=== PATIENT | male | born 1950 | race Caucasian/White ===

== ENCOUNTER → 2017-06-18 | Day surgery (SDC) | payer BC ==
[~2017-06-18] MED LIST: Midazolam 1 MG/ML 2 ML SDV ONE; Propofol 200 MG/20 ML SDV ONE; Sodium Chloride 0.9% 1,000 ML IV SCH; fentaNYL 100 MCG/2 ML SDV ONE
--- NOTE | 2017-06-18 14:57 | OR ---
DATE OF PROCEDURE: 06/18/2017 PROCEDURE: Colonoscopy. FINDINGS: 1. Transverse colon polyp, approximately 5 mm, completely removed using cold biopsy forceps. 2. Diverticulosis, mild, mostly concentrated at sigmoid colon. COMPLICATIONS: None. SLUBBER FRAME CHANGER: None. ANESTHESIA: MAC. PREOPERATIVE DIAGNOSIS: History of colon polyps. POSTOPERATIVE DIAGNOSIS: History of colon polyps. RISKS: Risks, benefits, alternatives, and limitations including, but not limited to infection, bleeding, and perforation were explained to the patient, who wished to proceed. PROCEDURE IN DETAIL: The patient was placed in left lateral decubitus position. A digital rectal exam was performed without abnormality. The scope was introduced and advanced atraumatically to the ileocecal valve. The scope was brought back to the ascending, transverse, descending colon, and retroflexed. No evidence of old or new blood. The polyp was identified and readily removed. The diverticulosis was described as mild and limited to sigmoid colon without evidence of diverticulosis. The patient tolerated the procedure well. Ramiro Montoya MD /[id number]
== END ==
LOC: JP.SDS 08:15
PROVIDERS: ATTEND Surgery
DX: Z12.11 Encounter for screening for malignant neoplasm of colon (principal); D12.4 Benign neoplasm of descending colon; K57.30 Diverticulosis of large intestine without perforation or abscess without bleeding; N18.9 Chronic kidney disease, unspecified; E78.5 Hyperlipidemia, unspecified; Z86.010 Personal history of colon polyps
CPT/HCPCS: 45380; J2250; J2704; J3010; J7040

== ENCOUNTER 2018-04-04 13:05 | Emergency (ER) | payer MEDICARE, OTHER ==
--- NOTE | 2018-04-04 14:10 | EDM.PDOC ---
<Verónica Amado M - Last Filed: 04/04/18 14:26> ED HPI GENERAL MEDICAL PROBLEM - General Chief Complaint: General Stated Complaint: NAUSEA Time Seen by Provider: 04/04/18 13:50 Source of Information: Reports: Patient, Family ( states that patient had surgery for abdominal aorta repair 01/28/2018 and the next day patient had right -sided weakness and had troubles writing and struggled with spelling. states that patient was an astute crossword puzzler previously. After consult with provider, scans were ordered. Scans revealed multiple lesions, but states no one really explained the severity of them. Patient was scheduled for PET scan in [place] tomorrow, but patient's decline in ability to care for self and vomiting was what brought family to bring patient to ER. Prior to surgery, patient was very active, snowshoeing with and doing fulltime work without difficulty at all. ) History Limitations: Reports: Altered Mental Status - History of Present Illness Onset: Gradual Onset Date: 04/03/18 Duration: Getting Worse Location: Reports: Other (patient unable to dress himself this morning with abrupt onset of vomiting. ) Severity: Moderate Improves with: Reports: None Worsens with: Reports: None - Related Data Allergies Allergy/AdvReac Type Severity Reaction Status Date / Time No Known Allergies Allergy Verified 03/16/18 11:14 Home Meds: Home Meds Aspirin [Halfprin] 81 mg PO DAILY 06/17/17 [History] Finasteride 5 mg PO DAILY 06/17/17 [History] Simvastatin [Zocor] 80 mg PO BEDTIME 06/17/17 [History] Tamsulosin HCl 0.4 mg PO DAILY 06/17/17 [History] Hydrocodone/Acetaminophen [Vanderbilt 5-325 Tablet] 1 tab PO Q3H PRN 04/04/18 [ History] Past Medical History Cardiovascular History: Reports: Other (See Below) Other Cardiovascular History: AAA Gastrointestinal History: Reports: Other (See Below) Other Gastrointestinal History: AAA Genitourinary History: Reports: BPH Musculoskeletal History: Reports: Other (See Below) Other Musculoskeletal History: hip left - Infectious Disease History Infectious Disease History: Reports: Chicken Pox, Measles, Mumps - Past Surgical History Cardiovascular Surgical History: Reports: AAA Repair GI Surgical History: Reports: Colonoscopy Musculoskeletal Surgical History: Reports: ORIF Social & Family History - Family History Family Medical History: Noncontributory - Tobacco Use Used Tobacco, but Quit: Yes Month/Year Tobacco Last Used: 1.5 - Caffeine Use Caffeine Use: Reports: Coffee - Recreational Drug Use Recreational Drug Use: No ED ROS GENERAL - Review of Systems Review Of Systems: See Below Constitutional: Reports: Weakness GI/Abdominal: Reports: Decreased Appetite, Vomiting (this morning. denies blood in it, describing it as garcia/green) Musculoskeletal: Reports: Other (able to pivot from car to wheelchair to cart with two person assistance) Skin: Reports: No Symptoms ED EXAM, GENERAL - Physical Exam Exam: See Below Exam Limited By: Altered Mental Status General Appearance: Lethargic Eye Exam: Bilateral Eye: EOMI, PERRL Ears: Other (responds to 's voice) Throat/Mouth: No Airway Compromise Head: Atraumatic, Normocephalic Respiratory/Chest: No Respiratory Distress, Lungs Clear, Normal Breath Sounds, No Accessory Muscle Use Cardiovascular: Normal Peripheral Pulses, Regular Rate, Rhythm, No Edema, No Gallop, No Murmur, No Rub Peripheral Pulses: 1+: Radial (L), Radial (R), Dorsalis Pedis (L), Dorsalis Pedis (R) GI/Abdominal: Normal Bowel Sounds Extremities: No Pedal Edema, Normal Capillary Refill Neurological: Disoriented Psychiatric: Tearful, Other (falls asleep between questions) Skin Exam: Warm, Dry, Intact, Normal Color, No Rash Course - Vital Signs Text/Narrative:: History obtained from , Gloria: states patient was doing well yesterday, able to dress himself and ambulate to bathroom on own, as per his usual routine. She states that this morning she noted that he couldn't dress himself and that he was slurring his speech and had seemed to make a significant decline in cognitive function overnight. He is not able to stand on own, and had many episodes of vomiting this morning. She states that patient was to travel to [place] tomorrow to undergo PET scan to determine the extent of the lesions in his brain. Through the , I have been able to discern that the patient is not in pain. Labs obtained. Consult with [facility] for transfer to that facility. Last Recorded V/S: Last Vital Signs Temp 35.3 C 04/04/18 13:15 Pulse 84 04/04/18 13:15 Resp 19 04/04/18 13:15 BP 162/98 H 04/04/18 13:15 Pulse Ox 94 L 04/04/18 13:15 - Orders/Labs/Meds Labs: Laboratory Tests 04/04/18 04/04/18 Range/Units 14:07 14:07 WBC 8.9 (4.5-11.0) K/uL RBC 5.01 (4.30-5.90) M/uL Hgb 14.9 (12.0-15.0) g/dL Hct 44.9 (40.0-54.0) % MCV 90 (80-98) fL MCH 30 (27-31) pg MCHC 33 (32-36) % Plt Count 258 (150-400) K/uL Neut % (Auto) 78 H (36-66) % Lymph % (Auto) 14 L (24-44) % [place] % (Auto) 7 H (2-6) % Eos % (Auto) 1 L (2-4) % Baso % (Auto) 0 (0-1) % Sodium 140 (140-148) mmol/L Potassium 4.1 (3.6-5.2) mmol/L Chloride 102 (100-108) mmol/L Carbon Dioxide 25 (21-32) mmol/L Anion Gap 13.5 (5.0-14.0) mmol/L BUN 21 H (7-18) mg/dL Creatinine 1.3 (0.8-1.3) mg/dL Est Cr Clr Drug Dosing 57.71 mL/min Estimated GFR (MDRD) 55 L (>60) Glucose 115 H (74-106) mg/dL Calcium 9.4 (8.5-10.1) mg/dL Total Bilirubin 0.6 (0.2-1.0) mg/dL AST 20 (15-37) U/L ALT 21 (12-78) U/L Alkaline Phosphatase 113 (46-116) U/L Total Protein 7.6 (6.4-8.2) g/dL Albumin 3.5 (3.4-5.0) g/dL Globulin 4.1 H (2.3-3.5) g/dL Albumin/Globulin Ratio 0.9 L (1.2-2.2) Meds: Medications Discontinued Medications Generic Name Dose Route Start Last Admin Trade Name Elvin PRN Reason Stop Dose Admin Dexamethasone 6 mg 04/04/18 14:44 04/04/18 14:54 Dexamethasone IVPUSH 04/04/18 14:45 6 mg ONETIME ONE Administration Sodium Chloride 1,000 mls @ 200 mls/hr 04/04/18 14:15 04/04/18 14:26 Normal Saline IV 200 mls/hr ASDIRECTED LEBRON Administration Ondansetron HCl 4 mg 04/04/18 14:43 04/04/18 14:46 Zofran IVPUSH 04/04/18 14:44 4 mg ONETIME ONE Administration Departure - Departure Disposition: DC/Tfer to Acute Hospital 02 Clinical Impression: Left parietal mass, Right hemiparesis - Discharge Information Referrals: Douglas Velazquez MD [Primary Care Provider] - Forms: ED Department Discharge Care Plan Goals: transfer to [facility]. <Sri Zapata - Last Filed: 04/06/18 23:59> ED ROS GENERAL - Review of Systems Review Of Systems: See Below ED EXAM, GENERAL - Physical Exam Exam: See Below Departure - Departure Time of Disposition: 15:30 Condition: Poor
[2018-04-04] MEDS ORDERED: Sodium Chloride 0.9% 1,000 ML IV SCH (14:15)
[2018-04-04] MEDS ORDERED: Ondansetron 4 MG/2 ML SDV IVPUSH ONE (14:43)
[2018-04-04] MEDS ORDERED: Dexamethasone 4 MG/ML SDV IVPUSH ONE (14:44)
== END 2018-04-04 15:29 ==
LOC: JP.ED 13:05
DX: G93.89 Other specified disorders of brain (principal); G81.91 Hemiplegia, unspecified affecting right dominant side; Z79.82 Long term (current) use of aspirin; Z79.899 Other long term (current) drug therapy
CPT/HCPCS: 36415; 80053; 85025; 96361; 96374; 96375; 99285; J1100; J2405; J7030